=== PATIENT | female | born 1955 | race Asian ===

== ENCOUNTER 2017-12-21 06:36 | Day surgery (SDC) | payer MEDICARE, OTHER ==
[2017-12-21] MEDS ORDERED: ETOMIDATE 20 MG INJ ×2 (07:00)
[2017-12-21] MEDS ORDERED: ROCURONIUM 50 MG INJ ×2 (07:00)
[2017-12-21 07:26] LABS: ADD MAN DIFF? NO
[2017-12-21 07:28] LABS: BASOPHILS % 0.5 % (0.0-2.0); EOSINOPHILS # 0.1 10^3/ul (0.0-0.5); EOSINOPHILS % 1.9 % (0.0-7.0); HEMATOCRIT 25.6 % (37.0-47.0); LYMPHOCYTES # 1.4 10^3/ul (0.8-2.9); LYMPHOCYTES % 23.3 % (15.0-51.0); MEAN CORPUSCULAR HEMOGLOBIN 33.1 pg (29.0-33.0); MEAN CORPUSCULAR HGB CONC 33.2 g/dl (32.0-37.0); MEAN CORPUSCULAR VOLUME 99.6 fl (82.0-101.0); MEAN PLATELET VOLUME 9.4 fl (7.4-10.4); MONOCYTE # 0.6 10^3/ul (0.3-0.9); MONOCYTES % 9.6 % (0.0-11.0); NEUTROPHILS % 64.4 % (39.0-77.0); PLATELET COUNT 221 10^3/UL (140-415); RED BLOOD COUNT 2.57 10^6/ul (4.20-5.40); RED CELL DISTRIBUTION WIDTH 15.2 % (11.5-14.5)
[2017-12-21 07:28] LABS: WHITE BLOOD COUNT 6.2 10^3/ul (4.8-10.8)
[2017-12-21 07:40] LABS: HOLD TRANSMISSIONS 1
[2017-12-21 07:42] LABS: HEMOGLOBIN 8.5 g/dl (12.0-16.0)
[2017-12-21 07:43] LABS: INR 0.84; PROTIME 11.6 Sec (11.9-14.9); PT RATIO 0.9
[2017-12-21 07:45] LABS: ALANINE AMINOTRANSFERASE 28 IU/L (13-69); ALBUMIN 4.6 g/dl (3.3-4.9); ALBUMIN/GLOBULIN RATIO 1.12; ALKALINE PHOSPHATASE 101 IU/L (42-121); ANION GAP 19 (8-16); ASPARTATE AMINO TRANSFERASE 19 IU/L (15-46); BILIRUBIN,INDIRECT 0.5 mg/dl (0-1.1); BILIRUBIN,TOTAL 0.5 mg/dl (0.2-1.3); CARBON DIOXIDE 34 mmol/L (21-31); CHLORIDE 91 mmol/L (97-110); GLUCOSE 194 mg/dl (70-220); TOTAL PROTEIN 8.7 g/dl (6.1-8.1)
[2017-12-21 07:51] LABS: CALCIUM 9.5 mg/dl (8.4-10.2); CREATININE 5.69 mg/dl (0.44-1.00); POTASSIUM 4.6 mmol/L (3.5-5.1); SODIUM 139 mmol/L (135-144)
[2017-12-21 07:52] LABS: PARTIAL THROMBOPLASTIN TIME 36.2 Sec (25.0-35.0)
[2017-12-21 07:54] LABS: BLOOD UREA NITROGEN 42 mg/dl (7-20)
[2017-12-21] MEDS ORDERED: ROPIVACAINE 0.5 % 30 ML VIAL ×2 (08:03)
[2017-12-21] MEDS ORDERED: LIDOCAINE 1% (MDV) 20 ML INJ ×2 (08:03)
[2017-12-21] MEDS ORDERED: FENTAnyl 50 MCG/ML VIAL ×4 (08:05→08:49)
[2017-12-21] MEDS ORDERED: LABETALOL HCL 20MG INJ ×2 (08:29)
[2017-12-21] MEDS ORDERED: CEFAZOLIN 1 GM INJ ×2 (08:31)
[2017-12-21] MEDS ORDERED: ONDANSETRON 4 MG INJ ×4 (08:36→10:43)
[2017-12-21] MEDS ORDERED: METOCLOPRAMIDE 10 MG INJ ×2 (08:37)
[2017-12-21] MEDS ORDERED: FAMOTIDINE 20 MG INJ ×2 (08:37)
[2017-12-21] MEDS: LIDOCAINE 1% (MPF) 30 ML INJ ×2 (08:48)
[2017-12-21] MEDS: HEPARIN 1000 UNITS/ML 10 ML INJ ×2 (08:49)
[2017-12-21] MEDS: THROMBIN 5000 UNIT VIAL ×2 (08:50)
[2017-12-21] MEDS: GELATIN SIZE 100 SPONGE ×2 (08:50)
[2017-12-21] MEDS ORDERED: PHENYLephrine (100 MCG/ML) 5ML SYG ×4 (08:56→09:34)
[2017-12-21] MEDS ORDERED: SUGAMMADEX SODIUM 200 MG/2 ML VIAL IV ×2 (09:41)
[2017-12-21] MEDS ORDERED: FENTAnyl 50 MCG/ML VIAL IV ×2 (10:00)
[2017-12-21] MEDS ORDERED: LABETALOL HCL 20MG INJ IV ×2 (10:00)
[2017-12-21] MEDS ORDERED: hydrALAzine 20 MG INJ IV ×2 (10:00)
[2017-12-21] MEDS: KETOROLAC 30 MG INJ IV ×2 (10:28)
[2017-12-21] MEDS: ONDANSETRON 4 MG INJ IV ×4 (10:48→13:17)
== END 2017-12-21 13:35 | disposition home or self-care (01) ==
LOC: SDS 06:36
DX: I12.0 Hypertensive chronic kidney disease with stage 5 chronic kidney disease or end stage renal disease (principal); N18.6 End stage renal disease
CPT/HCPCS: 36819; 71045; 80053; 82962; 85025; 85610; 85730; 93005

== ENCOUNTER 2017-12-25 16:57 | Inpatient (IN) | payer MEDICARE, OTHER ==
[2017-12-25] MEDS ORDERED: SOD CHLORIDE 0.9% 1,000 ML IV (17:31)
[2017-12-25 18:02] LABS: WHITE BLOOD COUNT 8.1 10^3/ul (4.8-10.8)
[2017-12-25 18:02] LABS: ABNORMAL IP MESSAGE 1; HEMATOCRIT 19.8 % (37.0-47.0); MEAN CORPUSCULAR HEMOGLOBIN 33.5 pg (29.0-33.0); MEAN CORPUSCULAR HGB CONC 32.8 g/dl (32.0-37.0); MEAN CORPUSCULAR VOLUME 102.1 fl (82.0-101.0); MEAN PLATELET VOLUME 9.1 fl (7.4-10.4); NUCLEATED RED BLOOD CELLS% 0.2 /100WBC (0.0-0.0); PLATELET COUNT 235 10^3/UL (140-415); RED BLOOD COUNT 1.94 10^6/ul (4.20-5.40); RED CELL DISTRIBUTION WIDTH 17.4 % (11.5-14.5)
[2017-12-25 18:06] LABS: POSITIVE DIFF @See below
[2017-12-25 18:07] LABS: HEMOGLOBIN 6.5 g/dl (12.0-16.0)
[2017-12-25 18:08] LABS: ADD MAN DIFF? YES
[2017-12-25 18:19] LABS: IRON 31 ug/dl (35-150)
[2017-12-25 18:20] LABS: ALANINE AMINOTRANSFERASE 13 IU/L (13-69); ALBUMIN 4.5 g/dl (3.3-4.9); ALBUMIN/GLOBULIN RATIO 1.04; ALKALINE PHOSPHATASE 87 IU/L (42-121); ANION GAP 16 (8-16); ASPARTATE AMINO TRANSFERASE 21 IU/L (15-46); BILIRUBIN,INDIRECT 0.6 mg/dl (0-1.1); BILIRUBIN,TOTAL 0.6 mg/dl (0.2-1.3); BLOOD UREA NITROGEN 18 mg/dl (7-20); CALCIUM 9.4 mg/dl (8.4-10.2); CARBON DIOXIDE 36 mmol/L (21-31); CHLORIDE 89 mmol/L (97-110); CREATININE 4.32 mg/dl (0.44-1.00); GLUCOSE 211 mg/dl (70-220); SODIUM 137 mmol/L (135-144); TOTAL PROTEIN 8.8 g/dl (6.1-8.1)
[2017-12-25 18:28] LABS: % IRON SATURATION 12 % SAT (22-52); TOTAL IRON BINDING CAPACITY 263 ug/dl (241-421)
[2017-12-25 19:19] LABS: ANISOCYTOSIS 1+ (0-0); EOSINOPHILS % (M) 3 % (0-7); LYMPHOCYTES #M 1.2 10^3/ul (0.8-2.9); LYMPHOCYTES % (M) 16 % (15-51); MONOCYTE #M 0.4 10^3/ul (0.3-0.9); MONOCYTES % (M) 6 % (0-11); PLATELET MORPHOLOGY COMMENT @See below; SEGMENTED NEUTROPHILS (M) % 75 % (39-77); SMUDGE%M 1 % (0-0)
[2017-12-25] MEDS ORDERED: ONDANSETRON 4 MG INJ IV ×2 (19:30→20:00)
[2017-12-25] MEDS ORDERED: ACETAMINOPHEN 325 MG TAB PO ×2 (19:30→20:00)
[2017-12-25] MEDS ORDERED: NACL 0.9% 3 ML SYG IV (20:00)
[2017-12-25] MEDS ORDERED: morphine 2 MG INJ IV (20:00)
[2017-12-25] MEDS ORDERED: ALBUTEROL/IPRATROPIUM (NEB) 3 ML AMP HHN (20:00)
[2017-12-25 20:27] LABS: IMMEDIATE SPIN CROSSMATCH 1 2
[2017-12-25 20:33] LABS: PATH REVIEW? YES
[2017-12-25] MEDS ORDERED: GLUCOSE GEL 15 GRAM TUBE BUCCAL (22:00)
[2017-12-25] MEDS ORDERED: GLUCOSE GEL 15 GRAM TUBE PO ×2 (22:00)
[2017-12-25] MEDS ORDERED: DEXTROSE 50% 50 ML SYRINGE IV ×2 (22:00)
[2017-12-25] MEDS ORDERED: GLUCAGON 1 MG INJ IM (22:00)
[2017-12-25] MEDS: INSULIN ASPART [NOVOLOG] 3 ML PEN SC (23:00)
[2017-12-25] MEDS: ATORVASTATIN 40 MG TAB PO (23:01)
[2017-12-26] MEDS: ACCU-CHEK XX (02:00)
[2017-12-26 08:42] LABS: ADD MAN DIFF? NO
[2017-12-26 08:44] LABS: WHITE BLOOD COUNT 6.6 10^3/ul (4.8-10.8)
[2017-12-26 08:44] LABS: BASOPHILS % 0.5 % (0.0-2.0); EOSINOPHILS # 0.2 10^3/ul (0.0-0.5); EOSINOPHILS % 2.6 % (0.0-7.0); HEMOGLOBIN 9.9 g/dl (12.0-16.0); LYMPHOCYTES % 15.1 % (15.0-51.0); MEAN CORPUSCULAR HEMOGLOBIN 32.9 pg (29.0-33.0); MEAN CORPUSCULAR HGB CONC 34.1 g/dl (32.0-37.0); MEAN CORPUSCULAR VOLUME 96.3 fl (82.0-101.0); MEAN PLATELET VOLUME 9.2 fl (7.4-10.4); MONOCYTE # 0.8 10^3/ul (0.3-0.9); MONOCYTES % 11.9 % (0.0-11.0); NEUTROPHIL # 4.6 10^3/ul (1.6-7.5); NEUTROPHILS % 69.4 % (39.0-77.0); NUCLEATED RED BLOOD CELLS% 0.3 /100WBC (0.0-0.0); PLATELET COUNT 214 10^3/UL (140-415); RED BLOOD COUNT 3.01 10^6/ul (4.20-5.40)
[2017-12-26] MEDS: SEVELAMER CARBONATE 0.8 GM PKT PO ×3 (08:52→17:14)
[2017-12-26 08:59] LABS: HEMOGLOBIN A1C 6.4 % (0-5.9)
[2017-12-26] MEDS: INSULIN GLARGINE [LANtus] 3 ML PEN SC (09:16)
[2017-12-26 09:17] LABS: ALANINE AMINOTRANSFERASE 19 IU/L (13-69); ALBUMIN 4.1 g/dl (3.3-4.9); ALBUMIN/GLOBULIN RATIO 1.13; ALKALINE PHOSPHATASE 77 IU/L (42-121); ANION GAP 18 (8-16); ASPARTATE AMINO TRANSFERASE 17 IU/L (15-46); BILIRUBIN,INDIRECT 0.9 mg/dl (0-1.1); BILIRUBIN,TOTAL 0.9 mg/dl (0.2-1.3); BLOOD UREA NITROGEN 28 mg/dl (7-20); CARBON DIOXIDE 30 mmol/L (21-31); CHLORIDE 96 mmol/L (97-110); CREATININE 5.29 mg/dl (0.44-1.00); GLUCOSE 182 mg/dl (70-220); POTASSIUM 4.2 mmol/L (3.5-5.1); SODIUM 140 mmol/L (135-144); TOTAL PROTEIN 7.7 g/dl (6.1-8.1)
[2017-12-26] MEDS: INSULIN ASPART [NOVOLOG] 3 ML PEN SC ×3 (09:17→17:14)
[2017-12-26 11:49] LABS: HEMATOCRIT 28.5 % (37.0-47.0); HEMOGLOBIN 9.8 g/dl (12.0-16.0)
[2017-12-26 12:05] LABS: POTASSIUM 4.4 mmol/L (3.5-5.1)
[2017-12-26 15:11] LABS: TRANSFERRIN 192 mg/dL (188-341)
[2017-12-26] MEDS: FAMOTIDINE 20 MG INJ IV (16:23)
[2017-12-26] MEDS: EPOETIN 4000 UNITS/1 ML INJ (ESRD) SC (17:10)
== END 2017-12-26 18:53 | disposition home or self-care (01) | DRG 682 ==
LOC: TEL 21:14 → E/R 16:57 → TEL 18:24
PROC: 30233N1 Transfusion of Nonautologous Red Blood Cells into Peripheral Vein, Percutaneous Approach (ICD-10-PCS; principal; 2017-12-25)
DX: I12.0 Hypertensive chronic kidney disease with stage 5 chronic kidney disease or end stage renal disease (principal); N18.6 End stage renal disease; E10.22 Type 1 diabetes mellitus with diabetic chronic kidney disease; D63.1 Anemia in chronic kidney disease; I25.10 Atherosclerotic heart disease of native coronary artery without angina pectoris; Z79.82 Long term (current) use of aspirin
CPT/HCPCS: 36430; 80053; 82728; 82962; 83036; 83540; 83735; 84132; 84466; 85014; 85018; 85025; 86850; 86900; 86901; 86920; 87040; 93005; 99285-25

== ENCOUNTER 2018-11-22 07:27 | Day surgery (SDC) | payer MEDICARE, OTHER ==
[~2018-11-22 07:27] MED LIST: CEFAZOLIN 1 GM INJ; LIDOCAINE 2% (SDV) 5 ML INJ; SEVOFLURANE 15 MIN
[2018-11-22 09:01] LABS: ADD MAN DIFF? NO
[2018-11-22 09:03] LABS: WHITE BLOOD COUNT 8.2 10^3/ul (4.8-10.8)
[2018-11-22 09:03] LABS: BASOPHILS % 0.5 % (0.0-2.0); EOSINOPHILS # 0.2 10^3/ul (0.0-0.5); EOSINOPHILS % 2.1 % (0.0-7.0); HEMATOCRIT 39.2 % (37.0-47.0); HEMOGLOBIN 12.3 g/dl (12.0-16.0); LYMPHOCYTES # 1.1 10^3/ul (0.8-2.9); LYMPHOCYTES % 12.8 % (15.0-51.0); MEAN CORPUSCULAR HEMOGLOBIN 31.4 pg (29.0-33.0); MEAN CORPUSCULAR HGB CONC 31.4 g/dl (32.0-37.0); MEAN PLATELET VOLUME 9.2 fl (7.4-10.4); MONOCYTE # 0.7 10^3/ul (0.3-0.9); NEUTROPHIL # 6.2 10^3/ul (1.6-7.5); NEUTROPHILS % 75.4 % (39.0-77.0); PLATELET COUNT 192 10^3/UL (140-415); RED BLOOD COUNT 3.92 10^6/ul (4.20-5.40); RED CELL DISTRIBUTION WIDTH 14.1 % (11.5-14.5)
[2018-11-22] MEDS ORDERED: MIDAZOLAM 1 MG/ML 2 ML INJ (09:15)
[2018-11-22] MEDS ORDERED: ONDANSETRON 4 MG INJ (09:16)
[2018-11-22] MEDS ORDERED: FENTAnyl 50 MCG/ML VIAL (09:16)
[2018-11-22] MEDS ORDERED: ROPIVACAINE 0.5 % 30 ML VIAL (09:16)
[2018-11-22] MEDS ORDERED: PROPOFOL 20 ML (09:16)
[2018-11-22 09:21] LABS: ALANINE AMINOTRANSFERASE 16 IU/L (13-69); ALBUMIN 4.6 g/dl (3.3-4.9); ALBUMIN/GLOBULIN RATIO 1.24; ALKALINE PHOSPHATASE 110 IU/L (42-121); ANION GAP 14 (5-13); ASPARTATE AMINO TRANSFERASE 24 IU/L (15-46); BILIRUBIN,INDIRECT 0.3 mg/dl (0-1.1); BILIRUBIN,TOTAL 0.3 mg/dl (0.2-1.3); CARBON DIOXIDE 27 mmol/L (21-31); CHLORIDE 101 mmol/L (97-110); Estimated GFR 8 mL/min (>60); GLUCOSE 153 mg/dl (70-220); POTASSIUM 4.7 mmol/L (3.5-5.1); SODIUM 142 mmol/L (135-144); TOTAL PROTEIN 8.3 g/dl (6.1-8.1)
[2018-11-22 09:22] LABS: INR 0.86; PROTIME 11.8 Sec (11.9-14.9); PT RATIO 0.9
[2018-11-22 09:24] LABS: PARTIAL THROMBOPLASTIN TIME 38.3 Sec (23.0-35.0)
[2018-11-22 09:28] LABS: BLOOD UREA NITROGEN 40 mg/dl (7-20); CREATININE 5.52 mg/dl (0.44-1.00)
[2018-11-22] MEDS: HEPARIN 1000 UNITS/ML 10 ML INJ (09:52)
[2018-11-22] MEDS ORDERED: DIPHENHYDRAMINE 50 MG INJ IV (10:30)
[2018-11-22] MEDS ORDERED: ONDANSETRON 4 MG INJ IV (10:30)
[2018-11-22] MEDS ORDERED: FENTAnyl 50 MCG/ML VIAL IV ×2 (10:30)
[2018-11-22] MEDS ORDERED: LABETALOL HCL 20MG INJ IV (10:30)
[2018-11-22] MEDS ORDERED: hydrALAzine 20 MG INJ IV (10:30)
[2018-11-22] MEDS ORDERED: HYDROmorphONE 1 MG/5 ML IV SYRINGE IV (10:30)
[2018-11-22] MEDS ORDERED: LEVALBUTEROL (NEB) 1.25 MG/0.5 ML AMP HHN (10:30)
[2018-11-22] MEDS ORDERED: GELATIN SIZE 100 SPONGE (11:38)
[2018-11-22] MEDS ORDERED: THROMBIN 5000 UNIT VIAL (11:39)
[2018-11-22] MEDS: GELATIN SIZE 100 SPONGE (11:43)
[2018-11-22] MEDS: THROMBIN 5000 UNIT VIAL (11:43)
== END 2018-11-22 14:37 | disposition home or self-care (01) ==
LOC: SDS 07:27
DX: I12.0 Hypertensive chronic kidney disease with stage 5 chronic kidney disease or end stage renal disease (principal); N18.6 End stage renal disease; E11.9 Type 2 diabetes mellitus without complications; E78.5 Hyperlipidemia, unspecified; I25.10 Atherosclerotic heart disease of native coronary artery without angina pectoris
CPT/HCPCS: 36821; 71045; 80053; 82962; 85025; 85610; 85730; 93005; C1768